=== PATIENT | male | born 1995 | race Caucasian/White ===

== ENCOUNTER → 2017-02-08 | Outpatient (CLI) | payer OTHER ==
--- NOTE | 2017-02-08 13:35 | DIAGNOSTIC IMAGING REPORT ---
RIGHT FOOT 3 VIEWS CLINICAL HISTORY: Right foot pain. FINDINGS: 3 views of the right foot are obtained. No prior studies are available for comparison at the time of dictation. The skeletal structures are well mineralized. No fracture is seen. The joint spaces of the foot are maintained. The overlying soft tissues are within normal limits. IMPRESSION: No acute bony abnormality is seen in the right foot. Electronically signed by: Javier Horne M.D. 02/08/2017 1:33 PM Dictated Date/Time: 02/08/2017 1:32 PM
== END | disposition home or self-care (01) ==
LOC: C.RDSM 08:01
PROVIDERS: ATTEND Internal Medicine
DX: M79.671 Pain in right foot (principal)